=== PATIENT | female | born 1940 | race Caucasian/White ===

== ENCOUNTER 2020-11-02 12:40 | Outpatient (CLI) | payer MEDICARE, SELFPAY ==
[2020-11-02 15:44] LABS: Basophils # 0.1 10^3/uL (0.0-0.1); Basophils % 0.6 %; Eosinophils # 0.2 10^3/uL (0.0-0.8); Eosinophils % 2.2 %; Hematocrit 41.4 % (37.0-47.0); Hemoglobin 14.6 g/dL (11.5-15.3); Lymphocytes # 3.4 10^3/uL (0.8-4.8); Lymphocytes % 32.4 %; Mean Corpuscular HGB Conc 35.3 g/dL (30.0-36.0); Mean Corpuscular Volume 90.8 fL (81-99); Mean Platelet Volume 9.2 fL (7.4-10.4); Monocytes # 0.8 10^3/uL (0.2-0.9); Monocytes % 7.2 %; Neutrophils # 6.05 10^3/uL (1.8-7.7); Neutrophils % 57.2 %; Nucleated Red Blood Cells % 0 %; Platelet Count 226 10^3/cmm (130-400); Red Blood Count 4.56 10^6/uL (4.1-5.3); Red Cell Distribution Width 12.4 % (12.1-15.1); White Blood Count 10.6 10^3/uL (4.0-10.0)
[2020-11-02 16:06] LABS: Alanine Aminotransferase 20 U/L (0-33); Albumin Level 4.2 g/dL (3.5-5.2); Alkaline Phosphatase 72 IU/L (35-105); Anion Gap 15.4 (5-19); Aspartate Amino Transferase 17 U/L (0-32); Blood Urea Nitrogen 23 mg/dL (8-23); Calcium 9.6 mg/dL (8.5-10.5); Carbon Dioxide 28 mmol/L (22-29); Chloride 101 mmol/L (98-107); Globulin 2.9 g/dL (1.3-4.6); Glucose 96 mg/dL (65-115); Osmolality Calculated 296 mOsm/kg (285-295); Potassium 3.4 mmol/L (3.5-5.1); Sodium 141 mmol/L (136-145); Total Bilirubin 0.5 mg/dL (0.15-1.2); Total Protein 7.1 g/dL (6.6-8.7)
--- NOTE | 2020-11-04 08:49 | ONC CON_ITS ---
Dr. Li New Patient Note Patient: Nazanin Reynolds Unit #: [id number]: 1940 Dicatated By: De Li M.D.Date of Visit: Nov 02, 2020 Onc MED New Patient/Consult Referring Physician: Dr. Sumit Ceron M.D. History of Present Illness: Ms. Nazanin Reynolds, is a 80-year-old female with a history of macular degeneration, congestive heart failure, coronary artery disease during her routine follow-up her lab work-up done in early 2019 showed elevated platelets count and white blood cells, patient was referred to [facility] in [place], [place] where she underwent. 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 As per patient ,she was started on hydroxyurea, which she took twice a day for 6 weeks and after that in June 2020 she was started on dasatinib 50 mg p.o. daily, her baseline QTC was less than 450 ms, patient said she could not afford copayment so there was a delay in getting her medication, which she eventually got it and took it till October 04, 2020 when she ran out of her prescription and also moved to [place].. 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 Past Medical History: Ms. Reynolds's medical history consists of congestive heart failure, coronary artery disease, macular degeneration, and myocardial infarction. Past Surgical History: Ms. Reynolds's surgical/procedural history consists of cataract excision, cholecystectomy, and hysterectomy. Medications: Dede-[place] 1 Tablet (of 750 mg) Tablet, effervescent Oral PRN, amLODIPine Besylate 1 Tablet (of 2.5 mg) Oral daily, B Complex 1 Tablet Oral daily, Bisoprolol Fumarate 1 Tablet (of 5 mg) Oral every am, Brimonidine Tartrate 1 Drop(s) (of 0.2 %) Solution Ophthalmic b.i.d., Calcium 1 Tablet (of 500 mg) Oral b.i.d., Calcium 1 Tablet (of 500 mg) Oral daily, Co Q10 1 Capsule (of 100 mg) Oral daily, Copper 1 Tablet (of 5 mg) Oral daily, Fish Oil 1 Capsule (of 1400 mg) Oral t.i.d., Furosemide 1 Tablet (of 40 mg) Oral daily, Latanoprost 1 Drop(s) (of 0.005 %) Solution Ophthalmic at bedtime, Losartan Potassium 1 Tablet (of 25 mg) Oral daily, Omeprazole (20 mg) Capsule Delayed Release Oral Take as Directed, Pravastatin Sodium 1 Tablet (of 40 mg) Oral daily, PreserVision AREDS 1 Tablet Oral b.i.d., SM Stool Softener 1 Capsule (of 50 mg) Oral daily, Sprycel 1 Tablet (of 50 mg) Oral daily, Tagamet HB 2 - 3 Tablet (of 200 mg) Oral daily, Vitamin C 1 Capsule (of 250 mg) Oral daily, Vitamin D (Cholecalciferol) 1 Tablet (of 1000 mg) Oral daily, Vitamin E 1 Capsule (of 200 Units) Oral daily, Zeaxanthin 1 Tablet (of 1 mg) daily, Zinc 1 Tablet (of 40 mg) Oral daily Allergies: Codeine and Related, Iodinated Contrast Dye, and Morphine Derivatives. Social History: Ms. Reynolds is . Ms. Reynolds quit smoking 26 years ago but had smoked 2.5 packs/day for 38 years. She is a former drinker. Family History: Ms. Reynolds's mother at age 74: unknown cancer. Ms. Reynolds's father at age 88: congestive heart failure. Ms. Reynolds has 1 brother who is alive: 4 way bypass. She has 1 sister who is alive: 4 way bypass. Review Of Symptoms: Review of Systems is not available for this patient. Vital Signs: Most recent vitals are not available for this patient. Performance Status: 0 - Fully active, able to carry on all predisease activities without restrictions. (ECOG) Physical Examination: ENMT - No mouth sores, no thrush, no jaundice, Respiratory - Lungs are clear to auscultation, Cardiovascular - Regular rate and rhythm of heart, Abdomen - Soft, bowel sounds present, Extremities - Trace edema bilaterally. Lab/Imaging: Most recent lab results are not available for this patient. 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 daily in June 2020, baseline QTC less than 450 ms. Labs done on May 23, 2020 showed white blood count 14.3, hemoglobin 14.6 hematocrit 43.7 platelets 1265,000, neutrophils 69%, lymphocytes 14%, basophil 12% follow-up labs done on August 04, 2020???including PCR for BCR ABL showed 3%, which is optimal response for 3 months on dasatinib [address] scan of abdomen pelvis done in March 2020 showed 7 mm pulmonary nodule versus scar in the left lung base and no acute abnormality in the upper abdomen History of coronary artery disease/CHF Macular degenerative disease Plan: Discussed with patient regarding her disease status and treatment options so far, patient has tolerated dasatinib 50 mg p.o. daily well and her follow-up lab work-up done in August 2020 showed excellent response e.g. quantitative BCR/ABL checked in August 2020 was 3% compared to 53.36% at the time of diagnosis on May 23, 2020. As per patient she ran out of her prescription and the last time she took her dasatinib was on October 04, 2020 as she moved to [place] from [place]. So we will give her prescription for dasatinib 50 mg p.o. daily and she will return to clinic in 1 month after restarting dasatinib with CBC CMP, LDH and we will also continue 3 monthly PCR quantitative BCR/ABL to assess the response. We will also consider follow-up CT scan of chest as her CT scan of chest done in March 2020 showed small pulmonary nodule versus scar of posterior left lung base measuring 7 mm and a tiny 2 to 3 mm subpleural pulmonary nodule at the right lung apex. Signed By: De Li M.D. <<Signature on File>>
== END 2020-11-02 12:41 | disposition home or self-care (01) ==
PROVIDERS: PCP Family Medicine; Visit Provider Internal Medicine Hematology & Oncology
DX: C92.10 Chronic myeloid leukemia, BCR/ABL-positive, not having achieved remission (principal); I25.10 Atherosclerotic heart disease of native coronary artery without angina pectoris; I50.9 Heart failure, unspecified; H35.30 Unspecified macular degeneration; Z79.899 Other long term (current) drug therapy; Z87.891 Personal history of nicotine dependence
CPT/HCPCS: 36415; 80053; 85025; 99203

== ENCOUNTER 2021-02-06 12:11 | Outpatient (CLI) | payer MEDICARE, SELFPAY ==
[2021-02-06 12:44] LABS: Basophils # 0.1 10^3/uL (0.0-0.1); Basophils % 0.8 %; Eosinophils # 0.3 10^3/uL (0.0-0.8); Eosinophils % 2.6 %; Hematocrit 44.5 % (37.0-47.0); Lymphocytes # 3.1 10^3/uL (0.8-4.8); Lymphocytes % 31.2 %; Mean Corpuscular HGB Conc 33.7 g/dL (30.0-36.0); Mean Corpuscular Hemoglobin 31.6 pg (28.0-34.0); Mean Corpuscular Volume 93.7 fL (81-99); Mean Platelet Volume 9.3 fL (7.4-10.4); Monocytes # 0.8 10^3/uL (0.2-0.9); Monocytes % 7.8 %; Neutrophils # 5.62 10^3/uL (1.8-7.7); Neutrophils % 57.3 %; Nucleated Red Blood Cells % 0 %; Platelet Count 276 10^3/cmm (130-400); Red Blood Count 4.75 10^6/uL (4.1-5.3); Red Cell Distribution Width 12.6 % (12.1-15.1); White Blood Count 9.8 10^3/uL (4.0-10.0)
[2021-02-06 13:01] LABS: Alanine Aminotransferase 21 U/L (0-33); Albumin Level 4.3 g/dL (3.5-5.2); Alkaline Phosphatase 81 IU/L (35-105); Anion Gap 12.8 (5-19); Aspartate Amino Transferase 19 U/L (0-32); Blood Urea Nitrogen 21 mg/dL (8-23); Carbon Dioxide 30 mmol/L (22-29); Chloride 101 mmol/L (98-107); Globulin 2.9 g/dL (1.3-4.6); Glucose 96 mg/dL (65-115); Osmolality Calculated 293 mOsm/kg (285-295); Potassium 3.8 mmol/L (3.5-5.1); Sodium 140 mmol/L (136-145); Total Bilirubin 0.3 mg/dL (0.15-1.2); Total Protein 7.2 g/dL (6.6-8.7)
[2021-02-08 13:19] LABS: Lactate Dehydrogenase 194 U/L (135-214)
== END 2021-02-06 12:12 | disposition home or self-care (01) ==
LOC: ONCMED 12:18
PROVIDERS: PCP Family Medicine; Visit Provider Internal Medicine Hematology & Oncology
DX: C92.10 Chronic myeloid leukemia, BCR/ABL-positive, not having achieved remission (principal)
CPT/HCPCS: 80053; 83615; 85025

== ENCOUNTER 2021-02-09 05:45 | Outpatient (CLI) | payer MEDICARE, SELFPAY ==
--- NOTE | 2021-02-09 10:13 | ONC FU_ITS ---
Dr. Li follow up note Patient: Nazanin Reynolds Unit #: [id number]: 1940 Dicatated By: De Li M.D.Date of Visit:Feb 09, 2021 Onc Med Follow-up/Prog Note History of Present Illness: Ms. Nazanin Reynolds, is a 80-year-old female with a history of macular degeneration, congestive heart failure, coronary artery disease during her routine follow-up her lab work-up done in early 2019 showed elevated platelets count and white blood cells, patient was referred to [facility] in [place], [place] where she underwent. 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 As per patient ,she was started on hydroxyurea, which she took twice a day for 6 weeks and after that in June 2020 she was started on dasatinib 50 mg p.o. daily, her baseline QTC was less than 450 ms, patient said she could not afford copayment so there was a delay in getting her medication, which she eventually got it and took it till October 04, 2020 when she ran out of her prescription and also moved to [place].. 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 As per oncology note from August 11, 2020, patient was tolerating treatment well with evidence of CHR. Patient denies any specific complaints today, no fever chills, no nausea or vomiting, no diarrhea or constipation, no abdominal fullness, appetite is good History of smoking but quit smoking in 1993.History of coronary artery disease status post DC in 1993 requiring intubation which caused permanent huskiness of voice History of macular degeneration and glaucoma Came for follow-up, patient denies any specific complaints, no fever chills, no nausea or vomiting, no diarrhea or constipation, no abdominal fullness, no weight loss. Patient says she did receive her monthly supply of dasatinib in January 2021 and she ran out of her monthly supply last week and did not get another monthly supply. Patient was given dasatinib prescription in the first week of November 2020, as per patient she has no idea why it took so long but pharmacist was apologizing to her for the delay. Medications: Dede-[place] 1 Tablet (of 750 mg) Tablet, effervescent Oral PRN, amLODIPine Besylate 1 Tablet (of 2.5 mg) Oral daily, B Complex 1 Tablet Oral daily, Bisoprolol Fumarate 1 Tablet (of 5 mg) Oral every am, Brimonidine Tartrate 1 Drop(s) (of 0.2 %) Solution Ophthalmic b.i.d., Calcium 1 Tablet (of 500 mg) Oral b.i.d., Calcium 1 Tablet (of 500 mg) Oral daily, Co Q10 1 Capsule (of 100 mg) Oral daily, Copper 1 Tablet (of 5 mg) Oral daily, Fish Oil 1 Capsule (of 1400 mg) Oral t.i.d., Furosemide 1 Tablet (of 40 mg) Oral daily, Latanoprost 1 Drop(s) (of 0.005 %) Solution Ophthalmic at bedtime, Losartan Potassium 1 Tablet (of 25 mg) Oral daily, Omeprazole (20 mg) Capsule Delayed Release Oral Take as Directed, Pravastatin Sodium 1 Tablet (of 40 mg) Oral daily, PreserVision AREDS 1 Tablet Oral b.i.d., SM Stool Softener 1 Capsule (of 50 mg) Oral daily, Sprycel 1 Tablet (of 50 mg) Oral daily, Tagamet HB 2 - 3 Tablet (of 200 mg) Oral daily, Vitamin C 1 Capsule (of 250 mg) Oral daily, Vitamin D (Cholecalciferol) 1 Tablet (of 1000 mg) Oral daily, Vitamin E 1 Capsule (of 200 Units) Oral daily, Zeaxanthin 1 Tablet (of 1 mg) daily, Zinc 1 Tablet (of 40 mg) Oral daily Allergies: Codeine and Related, Iodinated Contrast Dye, and Morphine Derivatives. Review of Systems: Review of Systems is not available for this patient. Vital Signs: Performed on Feb 09, 2021 09:19 Weight - 165.4 lbs (HIGH) BSA - 0.00 sq.m BMI - 0.00 Temperature - 95.6 F (LOW) Pulse - 86 /min Respiration - 18 /min BP - 130/78 mm(hg) O2 Sat - 99 % Pain - 0 Fatigue - 0 Performance Status: 1 - No physically strenuous activity, but ambulatory and able to carry out light or sedentary work (e.g. office work, light house work). (ECOG) Physical Examination: ENMT - No mouth sores, no thrush, no jaundice no lymphadenopathy, Respiratory - Lungs are clear to auscultation, Cardiovascular - Regular rate and rhythm of heart, Abdomen - Soft, bowel sounds present, Extremities - No visible edema. Lab/Imaging: Test performed on Nov 02, 2020 15:32 Sodium 141 mmol/L Potassium 3.4 mmol/L Chloride 101 mmol/L CO2 28 mmol/L Anion Gap 15.4 BUN 23 mg/dL Creatinine 0.8 mg/dL Glucose 96 mg/dL Osmolality - Calculated 296 mOsm/kg Calcium 9.6 mg/dL Protein, Total 7.1 g/dL Albumin 4.2 g/dL Globulin 2.9 g/dL Bilirubin, Total 0.5 mg/dL ALT (SGPT) 20 U/L AST (SGOT) 17 U/L Alkaline Phosphatase 72 IU/L WBC 10.6 10 3/uL RBC 4.56 10 6/uL HGB 14.6 g/dL HCT 41.4 % MCV 90.8 fL MCH 32.0 pg MCHC 35.3 g/dL RDW 12.4 % Platelet Count 226 10 3/cmm MPV 9.2 fL Neutrophils 6.05 10 3/uL Lymphocytes 3.4 10 3/uL Monocytes 0.8 10 3/uL Eosinophils 0.2 10 3/uL Basophils 0.1 10 3/uL Neutrophil % 57.2 % Lymphocyte % 32.4 % Monocyte % 7.2 % Eosinophil % 2.2 % Basophils % 0.6 % NRBC % 0 % Impression: CML, 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 daily in June 2020, baseline QTC less than 450 ms. Labs done on May 23, 2020 showed white blood count 14.3, hemoglobin 14.6 hematocrit 43.7 platelets 1265,000, neutrophils 69%, lymphocytes 14%, basophil 12% follow-up labs done on August 04, 2020???including PCR for BCR ABL showed 3%, which is optimal response for 3 months on dasatinib 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 required for acute DC History of coronary artery disease/CHF Macular degenerative disease, Bilateral glaucoma Plan: Discussed with patient regarding her labs white blood count 9.8 hemoglobin 15 hematocrit 44.5 platelets 276,000 ANC 5620 CMP within normal limits except creatinine 1 Clinically, patient doing well with no new signs symptoms suggestive of disease progression but patient is noncompliant with her dasatinib because of problem with pharmacy as initially it took long time to get her monthly supply of dasatinib and then he was sent for just 1 month and patient never got second monthly supply. We will request patient navigator Ms. Hwang to discuss with patient regarding this issue and ensure dasatinib supply on regular basis. Patient has history of subcentimeter pulmonary nodule in left lung base which was seen on CT scan done in March 2020, we will repeat her CT scan of the chest with special attention to left lung, patient has longstanding history of smoking but quit smoking in 1993. Patient will return to clinic 1 month after starting of dasatinib with CBC CMP and CT scan of the chest and quantitative PCR for BCR ABL. Signed By: De Li M.D. <<Signature on File>>
== END 2021-02-09 05:46 | disposition home or self-care (01) ==
PROVIDERS: PCP Family Medicine; Visit Provider Internal Medicine Hematology & Oncology
DX: C92.10 Chronic myeloid leukemia, BCR/ABL-positive, not having achieved remission (principal); R91.1 Solitary pulmonary nodule; I25.10 Atherosclerotic heart disease of native coronary artery without angina pectoris; I50.9 Heart failure, unspecified; Z91.14 Patient's other noncompliance with medication regimen; Z87.891 Personal history of nicotine dependence
CPT/HCPCS: 99214

== ENCOUNTER 2021-02-21 06:07 | Outpatient (CLI) | payer MEDICARE, SELFPAY ==
--- NOTE | 2021-02-21 09:21 | CT_ITS ---
WS: [id number] CT CHEST WITH INTRAVENOUS CONTRAST HISTORY: LUNG CANCER/ ATTN:LEFT LUNG BASE NODULE TECHNIQUE: Contiguous 5 mm axial imaging performed on the thorax. Coronal and sagittal reformats are submitted. All CT scans at [facility] use at least one of these dose optimization techniq ues: automated exposure control; mA and/or kV adjustment per patient size (includes targeted exams wh ere dose is matched to clinical indication); or iterative reconstruction. CONTRAST: Visipaque 320; 95 mL IV. DLP: 746.98 mGy.cm COMPARISON: None available. Lungs and central airway: Lobulated noncalcified pulmonary nodule in the periphery of the LEFT lower lobe. Several nodular components with pleural tethering. This nodule extends over length of 13 mm x 9 x 13 mm. Mild groundglass attenuation at the lingula. No additional nodules or pneumonia. Pleura: Normal. No pleural effusion. Heart and pericardium: Moderate cardiomegaly. No pericardial effusion. Mediastinum and alexy: No mediastinum or hilar adenopathy. Vessels: Moderate atherosclerosis aorta. Mild dilatation of the pulmonary artery and extensive blanco ry artery calcifications. Moderate stenosis at the origin of the LEFT common carotid artery. Chest wall and lower neck: No soft tissue masses. Upper abdomen: Moderate-sized hiatal hernia. Prior cholecystectomy. Mild hepatic steatosis. Osseous structures: Mild thoracic spondylitic changes. No osteoblastic or osteolytic disease. CT/CT chest w con* [id number] IMPRESSION: 1. LEFT lower lobe pulmonary nodule measures 13 x 9 x 13 mm. No prior studies are available to evaluate for progression or improvement. 2. Chronic emphysema. 3. Moderate atherosclerosis aorta and proximal great vessels. 4. No adenopathy. 5. Prior cholecystectomy.
[2021-02-21] MEDS: iodixanol 320 mg/mL 100mL Btl IV (09:50)
[2021-02-25 00:43] LABS: BCR ABL1 (IS) 7.846 (0.000); P210 BCR ALB1 DETECTED; Prior Results NG
== END 2021-02-21 06:08 | disposition home or self-care (01) ==
LOC: ONCMED 06:09
PROVIDERS: PCP Family Medicine; Visit Provider Internal Medicine Hematology & Oncology
DX: C92.10 Chronic myeloid leukemia, BCR/ABL-positive, not having achieved remission (principal); R91.1 Solitary pulmonary nodule; J43.9 Emphysema, unspecified; I70.0 Atherosclerosis of aorta
CPT/HCPCS: 36415; 71260; 81206; Q9967

== ENCOUNTER 2021-02-22 12:12 | Outpatient (RCR) | payer MEDICARE, SELFPAY | END 2021-03-01 23:59 | disposition home or self-care (01) | LOC: ONCMED 12:12 | PROVIDERS: PCP Family Medicine; Visit Provider Internal Medicine Hematology & Oncology | DX: C92.10 Chronic myeloid leukemia, BCR/ABL-positive, not having achieved remission (principal) | CPT/HCPCS: 96374; J2930 ==

== ENCOUNTER 2021-03-16 05:56 | Outpatient (RCR) | payer MEDICARE, SELFPAY ==
[2021-03-16 14:47] LABS: Basophils # 0.1 10^3/uL (0.0-0.1); Basophils % 0.7 %; Eosinophils # 0.2 10^3/uL (0.0-0.8); Eosinophils % 2.4 %; Hematocrit 40.4 % (37.0-47.0); Hemoglobin 13.7 g/dL (11.5-15.3); Lymphocytes # 3.3 10^3/uL (0.8-4.8); Lymphocytes % 38.5 %; Mean Corpuscular HGB Conc 33.9 g/dL (30.0-36.0); Mean Corpuscular Hemoglobin 31.7 pg (28.0-34.0); Mean Corpuscular Volume 93.5 fL (81-99); Mean Platelet Volume 9.5 fL (7.4-10.4); Monocytes # 0.8 10^3/uL (0.2-0.9); Monocytes % 9.1 %; Neutrophils # 4.25 10^3/uL (1.8-7.7); Neutrophils % 49.1 %; Nucleated Red Blood Cells % 0 %; Platelet Count 255 10^3/cmm (130-400); Red Blood Count 4.32 10^6/uL (4.1-5.3); White Blood Count 8.7 10^3/uL (4.0-10.0)
[2021-03-16 15:02] LABS: Alanine Aminotransferase 22 U/L (0-33); Albumin Level 4.1 g/dL (3.5-5.2); Alkaline Phosphatase 72 IU/L (35-105); Anion Gap 12.7 (5-19); Aspartate Amino Transferase 19 U/L (0-32); Blood Urea Nitrogen 28 mg/dL (8-23); Calcium 8.8 mg/dL (8.5-10.5); Carbon Dioxide 28 mmol/L (22-29); Chloride 102 mmol/L (98-107); Globulin 2.6 g/dL (1.3-4.6); Glucose 93 mg/dL (65-115); Osmolality Calculated 293 mOsm/kg (285-295); Potassium 3.7 mmol/L (3.5-5.1); Sodium 139 mmol/L (136-145); Total Bilirubin 0.3 mg/dL (0.15-1.2); Total Protein 6.7 g/dL (6.6-8.7)
--- NOTE | 2021-03-16 15:50 | ONC FU_ITS ---
Dr. Li follow up note Patient: Nazanin Reynolds Unit #: [id number]: 1940 Dicatated By: De Li M.D.Date of Visit:Mar 16, 2021 Onc Med Follow-up/Prog Note History of Present Illness: Ms. Nazanin Reynolds, is a 80-year-old female with a history of macular degeneration, congestive heart failure, coronary artery disease during her routine follow-up her lab work-up done in early 2019 showed elevated platelets count and white blood cells, patient was referred to [facility] [place] [facility] in [place], [place] where she underwent. 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 Repeat CT scan of chest done on February 21, 2021 shows left lower lobe pulmonary nodule measuring 1.3 x 0.9 x 1.3 cm compared to 7 mm in March 2020 As per patient ,she was started on hydroxyurea, which she took twice a day for 6 weeks and after that in June 2020 she was started on dasatinib 50 mg p.o. daily, her baseline QTC was less than 450 ms, patient said she could not afford copayment so there was a delay in getting her medication, which she eventually got it and took it till October 04, 2020 when she ran out of her prescription and also moved to [place].. 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 As per oncology note from August 11, 2020, patient was tolerating treatment well with evidence of CHR. Repeat BCR/ABL 1 international scale was 7.84 compared to 3 on August 04, 2020.(Patient was noncompliant with dasatinib due to unavailability while moving to [place] from [place] and her medicine was not delivered to her by pharmacy on time) Patient denies any specific complaints today, no fever chills, no nausea or vomiting, no diarrhea or constipation, no abdominal fullness, appetite is good History of smoking but quit smoking in 1993.History of coronary artery disease status post CT in 1993 requiring intubation which caused permanent huskiness of voice History of macular degeneration and glaucoma Came for follow-up, denies any specific complaints, no fever chills, no nausea vomiting, no diarrhea constipation, no hemoptysis hematemesis, no abdominal fullness, no weight loss. As per patient she is taking dasatinib on a regular basis now, still getting monthly supply, patient was advised to call pharmacy week before her next monthly supply is due Medications: [place]ede-[place] 1 Tablet (of 750 mg) Tablet, effervescent Oral PRN, amLODIPine Besylate 1 Tablet (of 2.5 mg) Oral daily, B Complex 1 Tablet Oral daily, Bisoprolol Fumarate 1 Tablet (of 5 mg) Oral every am, Brimonidine Tartrate 1 Drop(s) (of 0.2 %) Solution Ophthalmic b.i.d., Calcium 1 Tablet (of 500 mg) Oral b.i.d., Calcium 1 Tablet (of 500 mg) Oral daily, Co Q10 1 Capsule (of 100 mg) Oral daily, Copper 1 Tablet (of 5 mg) Oral daily, Fish Oil 1 Capsule (of 1400 mg) Oral t.i.d., Furosemide 1 Tablet (of 40 mg) Oral daily, Latanoprost 1 Drop(s) (of 0.005 %) Solution Ophthalmic at bedtime, Losartan Potassium 1 Tablet (of 25 mg) Oral daily, Omeprazole (20 mg) Capsule Delayed Release Oral Take as Directed, Pravastatin Sodium 1 Tablet (of 40 mg) Oral daily, PreserVision AREDS 1 Tablet Oral b.i.d., SM Stool Softener 1 Capsule (of 50 mg) Oral daily, Sprycel 1 Tablet (of 50 mg) Oral daily, Tagamet HB 2 - 3 Tablet (of 200 mg) Oral daily, Vitamin C 1 Capsule (of 250 mg) Oral daily, Vitamin D (Cholecalciferol) 1 Tablet (of 1000 mg) Oral daily, Vitamin E 1 Capsule (of 200 Units) Oral daily, Zeaxanthin 1 Tablet (of 1 mg) daily, Zinc 1 Tablet (of 40 mg) Oral daily Allergies: Codeine and Related, Iodinated Contrast Dye, and Morphine Derivatives. Review of Systems: Review of Systems is not available for this patient. Vital Signs: Performed on Mar 16, 2021 15:18 Weight - 167.8 lbs (HIGH) BSA - 0.00 sq.m BMI - 0.00 Temperature - 97.0 F (LOW) Pulse - 70 /min Respiration - 18 /min BP - 127/53 mm(hg) O2 Sat - 96 % Pain - 0 Performance Status: 1 - No physically strenuous activity, but ambulatory and able to carry out light or sedentary work (e.g. office work, light house work). (ECOG) Physical Examination: ENMT - No mouth sores, no thrush, no jaundice, Respiratory - Lungs are clear to auscultation, Cardiovascular - Regular rate and rhythm of heart, Abdomen - Soft, bowel sounds present, Extremities - No visible edema. Lab/Imaging: Test performed on Nov 02, 2020 15:32 Sodium 141 mmol/L Potassium 3.4 mmol/L Chloride 101 mmol/L CO2 28 mmol/L Anion Gap 15.4 BUN 23 mg/dL Creatinine 0.8 mg/dL Glucose 96 mg/dL Osmolality - Calculated 296 mOsm/kg Calcium 9.6 mg/dL Protein, Total 7.1 g/dL Albumin 4.2 g/dL Globulin 2.9 g/dL Bilirubin, Total 0.5 mg/dL ALT (SGPT) 20 U/L AST (SGOT) 17 U/L Alkaline Phosphatase 72 IU/L WBC 10.6 10 3/uL RBC 4.56 10 6/uL HGB 14.6 g/dL HCT 41.4 % MCV 90.8 fL MCH 32.0 pg MCHC 35.3 g/dL RDW 12.4 % Platelet Count 226 10 3/cmm MPV 9.2 fL Neutrophils 6.05 10 3/uL Lymphocytes 3.4 10 3/uL Monocytes 0.8 10 3/uL Eosinophils 0.2 10 3/uL Basophils 0.1 10 3/uL Neutrophil % 57.2 % Lymphocyte % 32.4 % Monocyte % 7.2 % Eosinophil % 2.2 % Basophils % 0.6 % NRBC % 0 % Impression: CML, 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 daily in June 2020, baseline QTC less than 450 ms. Labs done on May 23, 2020 showed white blood count 14.3, hemoglobin 14.6 hematocrit 43.7 platelets 1265,000, neutrophils 69%, lymphocytes 14%, basophil 12% follow-up labs done on August 04, 2020???including PCR for BCR ABL showed 3%, which is optimal response for 3 months on dasatinib [address] scan of abdomen pelvis done in March 2020 showed 7 mm pulmonary nodule versus scar in the left lung base and no acute abnormality in the upper abdomen Repeat CT scan of chest done on February 21, 2021 showed left lower lobe pulmonary nodule mild 13 x 9 x 13 mm. Chronic emphysema. No lymphadenopathy. 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 required for acute CT History of coronary artery disease/CHF Macular degenerative disease, Bilateral glaucoma Plan: Discussed with patient regarding her labs white blood count 8.7 hemoglobin 13.7 hematocrit 40.4 platelets 255,000 CMP within normal limits, BCR ABL 1 (IS) checked on February 21, 2021 was 7.84 compared to 3 in August 2020 Clinically, patient doing well with no signs symptom suggestive of recurrence/progression of her disease but her follow-up labs shows although CBC is within normal range but BCR/ABL 1 showed probably disease progression most likely due to noncompliant as patient missed her dasatinib for many weeks while moving from [place] to [place] and then having issues with her local pharmacy regarding her decitabine delivery but for the last few weeks she has been taking no regular basis and now receiving her monthly dose of dasatinib regularly. 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 But her repeat CT scan of chest done recently on February 21, 2021 showed left lower lobe mass has doubled in size now 13 x 9 x 13 mm compared to 7 mm last year. Thus we will refer her to pulmonology for evaluation Signed By: De Li M.D. <<Signature on File>>
== END 2021-03-31 23:59 | disposition home or self-care (01) ==
LOC: ONCMED 05:56
PROVIDERS: PCP Family Medicine; Visit Provider Internal Medicine Hematology & Oncology
DX: C92.10 Chronic myeloid leukemia, BCR/ABL-positive, not having achieved remission (principal); I25.2 Old myocardial infarction; I25.10 Atherosclerotic heart disease of native coronary artery without angina pectoris; I50.9 Heart failure, unspecified; H35.50 Unspecified hereditary retinal dystrophy; H40.89 Other specified glaucoma; Z79.899 Other long term (current) drug therapy
CPT/HCPCS: 36415; 80053; 85025; 99215

== ENCOUNTER 2021-04-27 05:34 | Outpatient (RCR) | payer MEDICARE, SELFPAY ==
[2021-04-22 21:08] LABS: BCR ABL1 (IS) 0.009 (0.000); P210 BCR ALB1 DETECTED; Prior Results NG
[2021-04-27 13:31] LABS: Basophils # 0.1 10^3/uL (0.0-0.1); Basophils % 0.6 %; Eosinophils # 0.2 10^3/uL (0.0-0.8); Eosinophils % 2.4 %; Hematocrit 40.8 % (37.0-47.0); Hemoglobin 14.1 g/dL (11.5-15.3); Lymphocytes # 3.1 10^3/uL (0.8-4.8); Lymphocytes % 32.5 %; Mean Corpuscular HGB Conc 34.6 g/dL (30.0-36.0); Mean Corpuscular Hemoglobin 32.9 pg (28.0-34.0); Mean Corpuscular Volume 95.3 fL (81-99); Mean Platelet Volume 9.2 fL (7.4-10.4); Monocytes # 0.8 10^3/uL (0.2-0.9); Monocytes % 8.3 %; Neutrophils # 5.33 10^3/uL (1.8-7.7); Nucleated Red Blood Cells % 0 %; Platelet Count 221 10^3/cmm (130-400); Red Blood Count 4.28 10^6/uL (4.1-5.3); Red Cell Distribution Width 13.2 % (12.1-15.1); White Blood Count 9.5 10^3/uL (4.0-10.0)
--- NOTE | 2021-04-27 16:22 | ONC FU_ITS ---
Dr. Li follow up note Patient: Nazanin Reynolds Unit #: [id number]: 1940 Dicatated By: De iL M.D.Date of Visit:April 27, 2021 Onc Med Follow-up/Prog Note History of Present Illness: Ms. Nazanin Reynolds, is a 80-year-old female with a history of macular degeneration, congestive heart failure, coronary artery disease during her routine follow-up her lab work-up done in early 2019 showed elevated platelets count and white blood cells, patient was referred to [facility] in [place], [place] where she underwent. 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 Repeat CT scan of chest done on February 21, 2021 shows left lower lobe pulmonary nodule measuring 1.3 x 0.9 x 1.3 cm compared to 7 mm in March 2020 As per patient ,she was started on hydroxyurea, which she took twice a day for 6 weeks and after that in June 2020 she was started on dasatinib 50 mg p.o. daily, her baseline QTC was less than 450 ms, patient said she could not afford copayment so there was a delay in getting her medication, which she eventually got it and took it till October 04, 2020 when she ran out of her prescription and also moved to [place].. 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 As per oncology note from August 11, 2020, patient was tolerating treatment well with evidence of CHR. Repeat BCR/ABL 1 international scale was 7.84 compared to 3 on August 04, 2020.(Patient was noncompliant with dasatinib due to unavailability while moving to [place] from [place] and her medicine was not delivered to her by pharmacy on time) Repeat quantitative PCR for BCR ABL done on April 19, 2021 shows 0.009 compared to 7.84 in January 2021, probably due to patient's inability to acquire dasatinib while she was moving to [place] Patient denies any specific complaints today, no fever chills, no nausea or vomiting, no diarrhea or constipation, no abdominal fullness, appetite is good History of smoking but quit smoking in 1993.History of coronary artery disease status post [place] in 1993 requiring intubation which caused permanent huskiness of voice History of macular degeneration and glaucoma Came for follow-up, denies any specific complaints, no fever chills, no nausea or vomiting, no diarrhea or constipation, no abdominal pain or fullness, no headaches, no chest pain or palpitation, tolerating dasatinib p.o. daily well Medications: Dede-[place] 1 Tablet (of 750 mg) Tablet, effervescent Oral PRN, amLODIPine Besylate 1 Tablet (of 2.5 mg) Oral daily, B Complex 1 Tablet Oral daily, Bisoprolol Fumarate 1 Tablet (of 5 mg) Oral every am, Brimonidine Tartrate 1 Drop(s) (of 0.2 %) Solution Ophthalmic b.i.d., Calcium 1 Tablet (of 500 mg) Oral b.i.d., Calcium 1 Tablet (of 500 mg) Oral daily, Co Q10 1 Capsule (of 100 mg) Oral daily, Copper 1 Tablet (of 5 mg) Oral daily, Fish Oil 1 Capsule (of 1400 mg) Oral t.i.d., Furosemide 1 Tablet (of 40 mg) Oral daily, Latanoprost 1 Drop(s) (of 0.005 %) Solution Ophthalmic at bedtime, Losartan Potassium 1 Tablet (of 25 mg) Oral daily, Omeprazole (20 mg) Capsule Delayed Release Oral Take as Directed, Pravastatin Sodium 1 Tablet (of 40 mg) Oral daily, PreserVision AREDS 1 Tablet Oral b.i.d., SM Stool Softener 1 Capsule (of 50 mg) Oral daily, Sprycel 1 Tablet (of 50 mg) Oral daily, Tagamet HB 2 - 3 Tablet (of 200 mg) Oral daily, Vitamin C 1 Capsule (of 250 mg) Oral daily, Vitamin D (Cholecalciferol) 1 Tablet (of 1000 mg) Oral daily, Vitamin E 1 Capsule (of 200 Units) Oral daily, Zeaxanthin 1 Tablet (of 1 mg) daily, Zinc 1 Tablet (of 40 mg) Oral daily Allergies: Codeine and Related, Iodinated Contrast Dye, and Morphine Derivatives. Review of Systems: Review of Systems is not available for this patient. Vital Signs: Performed on April 27, 2021 13:25 Temperature - 97.6 F (LOW) Pulse - 67 /min Respiration - 18 /min BP - 139/66 mm(hg) O2 Sat - 99 % Pain - 0 Performance Status: 1 - No physically strenuous activity, but ambulatory and able to carry out light or sedentary work (e.g. office work, light house work). (ECOG) Physical Examination: ENMT - No mouth sores, no thrush, no jaundice, Respiratory - Lungs are clear to auscultation, Cardiovascular - Regular rate and rhythm of heart, Abdomen - Soft, bowel sounds present, Extremities - No visible edema. Lab/Imaging: Test performed on Nov 02, 2020 15:32 Sodium 141 mmol/L Potassium 3.4 mmol/L Chloride 101 mmol/L CO2 28 mmol/L Anion Gap 15.4 BUN 23 mg/dL Creatinine 0.8 mg/dL Glucose 96 mg/dL Osmolality - Calculated 296 mOsm/kg Calcium 9.6 mg/dL Protein, Total 7.1 g/dL Albumin 4.2 g/dL Globulin 2.9 g/dL Bilirubin, Total 0.5 mg/dL ALT (SGPT) 20 U/L AST (SGOT) 17 U/L Alkaline Phosphatase 72 IU/L WBC 10.6 10 3/uL RBC 4.56 10 6/uL HGB 14.6 g/dL HCT 41.4 % MCV 90.8 fL MCH 32.0 pg MCHC 35.3 g/dL RDW 12.4 % Platelet Count 226 10 3/cmm MPV 9.2 fL Neutrophils 6.05 10 3/uL Lymphocytes 3.4 10 3/uL Monocytes 0.8 10 3/uL Eosinophils 0.2 10 3/uL Basophils 0.1 10 3/uL Neutrophil % 57.2 % Lymphocyte % 32.4 % Monocyte % 7.2 % Eosinophil % 2.2 % Basophils % 0.6 % NRBC % 0 % Impression: CML, 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 daily in June 2020, baseline QTC less than 450 ms. Labs done on May 23, 2020 showed white blood count 14.3, hemoglobin 14.6 hematocrit 43.7 platelets 1265,000, neutrophils 69%, lymphocytes 14%, basophil 12% follow-up labs done on August 04, 2020???including PCR for BCR ABL showed 3%, which is optimal response for 3 months on dasatinib [address] scan of abdomen pelvis done in March 2020 showed 7 mm pulmonary nodule versus scar in the left lung base and no acute abnormality in the upper abdomen Repeat CT scan of chest done on February 21, 2021 showed left lower lobe pulmonary nodule mild 13 x 9 x 13 mm. Chronic emphysema. No lymphadenopathy. 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 daily well, her follow-up labs showed excellent response, will continue same e.g. dasatinib 50 mg p.o. daily and then she will return to clinic in 3 months with CBC CMP and quantitative PCR for BCR ABL. Signed By: De Li M.D. <<Signature on File>>
== END 2021-05-01 23:59 | disposition home or self-care (01) ==
LOC: ONCMED 05:34
PROVIDERS: PCP Family Medicine; Visit Provider Internal Medicine Hematology & Oncology
DX: C92.10 Chronic myeloid leukemia, BCR/ABL-positive, not having achieved remission (principal); I25.2 Old myocardial infarction; I25.10 Atherosclerotic heart disease of native coronary artery without angina pectoris; I50.9 Heart failure, unspecified; H35.50 Unspecified hereditary retinal dystrophy; H40.9 Unspecified glaucoma; Z79.899 Other long term (current) drug therapy; Z92.21 Personal history of antineoplastic chemotherapy
CPT/HCPCS: 36415; 81206; 85025; 99214

== ENCOUNTER 2021-07-24 10:12 | Outpatient (CLI) | payer MEDICARE, SELFPAY ==
[2021-07-24 11:00] LABS: Basophils # 0.1 10^3/uL (0.0-0.1); Basophils % 0.7 %; Eosinophils # 0.2 10^3/uL (0.0-0.8); Eosinophils % 2.2 %; Hematocrit 41.1 % (37.0-47.0); Hemoglobin 13.9 g/dL (11.5-15.3); Lymphocytes # 2.9 10^3/uL (0.8-4.8); Lymphocytes % 26.9 %; Mean Corpuscular HGB Conc 33.8 g/dL (30.0-36.0); Mean Corpuscular Volume 94.7 fl (81-99); Mean Platelet Volume 9.3 fL (7.4-10.4); Monocytes % 9.4 %; Neutrophils # 6.42 10^3/uL (1.8-7.7); Neutrophils % 59.8 %; Nucleated Red Blood Cells % 0 %; Platelet Count 228 10^3/cmm (130-400); Red Blood Count 4.34 10^6/uL (4.1-5.3); Red Cell Distribution Width 12.6 % (12.1-15.1); White Blood Count 10.8 10^3/uL (4.0-10.0)
[2021-07-24 11:34] LABS: Alanine Aminotransferase 18 U/L (0-33); Albumin Level 3.9 g/dL (3.5-5.2); Alkaline Phosphatase 65 IU/L (35-105); Anion Gap 13.8 (5-19); Aspartate Amino Transferase 20 U/L (0-32); Blood Urea Nitrogen 22 mg/dL (8-23); Calcium 8.8 mg/dL (8.5-10.5); Carbon Dioxide 26 mmol/L (22-29); Chloride 105 mmol/L (98-107); Globulin 2.6 g/dL (1.3-4.6); Glucose 106 mg/dL (65-115); Osmolality Calculated 296 mOsm/kg (285-295); Potassium 3.8 mmol/L (3.5-5.1); Sodium 141 mmol/L (136-145); Total Bilirubin 0.3 mg/dL (0.15-1.2); Total Protein 6.5 g/dL (6.6-8.7)
[2021-07-26 22:12] LABS: BCR ABL1 (IS) 0.004 (0.000); P210 BCR ALB1 DETECTED; Prior Results NG; Source whole blood
== END 2021-07-24 10:13 | disposition home or self-care (01) ==
LOC: ONCMED 10:18
PROVIDERS: PCP Family Medicine; Visit Provider Internal Medicine Hematology & Oncology
DX: C92.10 Chronic myeloid leukemia, BCR/ABL-positive, not having achieved remission (principal); Z79.899 Other long term (current) drug therapy
CPT/HCPCS: 36415; 80053; 81206; 85025

== ENCOUNTER 2021-08-02 05:30 | Outpatient (CLI) | payer MEDICARE, SELFPAY ==
--- NOTE | 2021-08-03 15:49 | ONC FU_ITS ---
Dr. Li follow up note Patient: Nazanin Reynolds Unit #: [id number]: 1940 Dicatated By: De Li M.D.Date of Visit:Aug 02, 2021 Onc Med Follow-up/Prog Note History of Present Illness: Ms. Nazanin Reynolds, is a 80-year-old female with a history of macular degeneration, congestive heart failure, coronary artery disease during her routine follow-up her lab work-up done in early 2019 showed elevated platelets count and white blood cells, patient was referred to [facility] in [place], [place] where she underwent. 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 Repeat CT scan of chest done on February 21, 2021 shows left lower lobe pulmonary nodule measuring 1.3 x 0.9 x 1.3 cm compared to 7 mm in March 2020 As per patient ,she was started on hydroxyurea, which she took twice a day for 6 weeks and after that in June 2020 she was started on dasatinib 50 mg p.o. daily, her baseline QTC was less than 450 ms, patient said she could not afford copayment so there was a delay in getting her medication, which she eventually got it and took it till October 04, 2020 when she ran out of her prescription and also moved to [place].. 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 As per oncology note from August 11, 2020, patient was tolerating treatment well with evidence of CHR. Repeat BCR/ABL 1 international scale was 7.84 compared to 3 on August 04, 2020.(Patient was noncompliant with dasatinib due to unavailability while moving to [place] from [place] and her medicine was not delivered to her by pharmacy on time) Repeat quantitative PCR for BCR ABL done on April 19, 2021 shows 0.009 compared to 7.84 in January 2021, probably due to patient's inability to acquire dasatinib while she was moving to [place] Repeat quantitative PCR for BCR ABL done on July 24, 2021 shows 0.004 compared to 0.009 on April 19, 2021 History of smoking but quit smoking in 1993.History of coronary artery disease status post [place] in 1993 requiring intubation which caused permanent huskiness of voice History of macular degeneration and glaucoma Came for follow-up, denies any specific complaints, no fever chills, no nausea or vomiting, no diarrhea or constipation, patient is complaining of not getting her mail-in dasatinib on time and usually the laps of 1 week every month. Otherwise tolerating Dasatinib well Medications: Dede-[place] 1 Tablet (of 750 mg) Tablet, effervescent Oral PRN, amLODIPine Besylate 1 Tablet (of 2.5 mg) Oral daily, B Complex 1 Tablet Oral daily, Bisoprolol Fumarate 1 Tablet (of 5 mg) Oral every am, Brimonidine Tartrate 1 Drop(s) (of 0.2 %) Solution Ophthalmic b.i.d., Calcium 1 Tablet (of 500 mg) Oral b.i.d., Calcium 1 Tablet (of 500 mg) Oral daily, Co Q10 1 Capsule (of 100 mg) Oral daily, Copper 1 Tablet (of 5 mg) Oral daily, Fish Oil 1 Capsule (of 1400 mg) Oral t.i.d., Furosemide 1 Tablet (of 40 mg) Oral daily, Latanoprost 1 Drop(s) (of 0.005 %) Solution Ophthalmic at bedtime, Losartan Potassium 1 Tablet (of 25 mg) Oral daily, Omeprazole (20 mg) Capsule Delayed Release Oral Take as Directed, Pravastatin Sodium 1 Tablet (of 40 mg) Oral daily, PreserVision AREDS 1 Tablet Oral b.i.d., SM Stool Softener 1 Capsule (of 50 mg) Oral daily, Sprycel 1 Tablet (of 50 mg) Oral daily, Tagamet HB 2 - 3 Tablet (of 200 mg) Oral daily, Vitamin C 1 Capsule (of 250 mg) Oral daily, Vitamin D (Cholecalciferol) 1 Tablet (of 1000 mg) Oral daily, Vitamin E 1 Capsule (of 200 Units) Oral daily, Zeaxanthin 1 Tablet (of 1 mg) daily, Zinc 1 Tablet (of 40 mg) Oral daily Allergies: Codeine and Related, Iodinated Contrast Dye, and Morphine Derivatives. Review of Systems: Review of Systems is not available for this patient. Vital Signs: Performed on Aug 02, 2021 13:39 Weight - 169.2 lbs (HIGH) BSA - 0.00 sq.m BMI - 0.00 Temperature - 96.6 F (LOW) Pulse - 62 /min Respiration - 18 /min BP - 150/53 mm(hg) (HIGH) O2 Sat - 96 % Pain - 0 Fatigue - 6 Performance Status: 0 - Fully active, able to carry on all predisease activities without restrictions. (ECOG) Physical Examination: ENMT - No mouth sores, no thrush, no jaundice, Respiratory - Lungs are clear to auscultation, Cardiovascular - Regular rate and rhythm of heart , Abdomen - Soft, bowel sounds present, Extremities - No visible edema. Lab/Imaging: Most recent lab results are not available for this patient. 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 daily in June 2020, baseline QTC less than 450 ms. Labs done on May 23, 2020 showed white blood count 14.3, hemoglobin 14.6 hematocrit 43.7 platelets 1265,000, neutrophils 69%, lymphocytes 14%, basophil 12% follow-up labs done on August 04, 2020???including PCR for BCR ABL showed 3%, which is optimal response for 3 months on dasatinib [address] scan of abdomen pelvis done in March 2020 showed 7 mm pulmonary nodule versus scar in the left lung base and no acute abnormality in the upper abdomen Repeat CT scan of chest done on February 21, 2021 showed left lower lobe pulmonary nodule mild 13 x 9 x 13 mm. Chronic emphysema. No lymphadenopathy. 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 required for acute [place] History of coronary artery disease/CHF Macular degenerative disease, Bilateral glaucoma Plan: Discussed with patient regarding her labs white blood count 10.8 hemoglobin 13.9 hematocrit 41.1 platelets 228,000 CMP within normal limits and quantitative PCR for BCR/ABL done on July 24, 2021 shows further improvement now 0.004 compared to 0.009 previously Clinically, patient doing well with no new signs symptoms history of disease progression her lab work-up is reasonable with mild leukocytosis but quantitative PCR for BCR ABL shows further improvement, she is tolerating dasatinib very well and will continue with same, will also request patient navigator to investigate and ensure on time dasatinib supply. Patient return to clinic in 3 months with CBC CMP and quantitative PCR for BCR/ABL Signed By: De Li M.D. <<Signature on File>>
== END 2021-08-02 05:31 | disposition home or self-care (01) ==
LOC: ONCMED 05:30
PROVIDERS: PCP Family Medicine; Visit Provider Internal Medicine Hematology & Oncology
DX: C92.10 Chronic myeloid leukemia, BCR/ABL-positive, not having achieved remission (principal); I25.10 Atherosclerotic heart disease of native coronary artery without angina pectoris; I25.2 Old myocardial infarction; Z79.899 Other long term (current) drug therapy
CPT/HCPCS: 99214

== ENCOUNTER 2021-09-07 11:09 | Outpatient (CLI) | payer MEDICARE, SELFPAY ==
--- NOTE | 2021-09-07 11:45 | CT_ITS ---
WS: [id number] CT CHEST WITHOUT INTRAVENOUS CONTRAST HISTORY: Pulmonary Nodule TECHNIQUE: Contiguous 5 mm axial imaging performed on the thorax. Coronal and sagittal reformats are submitted. All CT scans at [facility] use at least one of these dose optimization techniques: automated exposure control; mA and/or kV adjustment per patient size (includes targeted exams where dose is matched to clinical indication); or iterative reconstruction. CONTRAST: None DLP: 879.01 mGycm COMPARISON: 02/21/2021 Lungs and central airway: Chronic emphysema. Interstitial thickening in the periphery of all lobes. M ild increase in size of the lobulated noncalcified nodule at the LEFT lung base. Nodule measures 11 x 15 mm and extends over a length of 14 mm. No additional focal nodules. There are a few areas of grou ndglass attenuation scattered throughout the lungs. Pleura: Normal. No pleural effusion. Heart and pericardium: Moderately enlarged heart. No effusion. Moderate atherosclerotic plaque within the [place] coronary arteries. Mediastinum and alexy: No mediastinum or hilar adenopathy. Vessels: Moderate atherosclerotic plaque within the aorta. Pulmonary artery is mildly enlarged. Chest wall and lower neck: No soft tissue masses. Upper abdomen: Prior cholecystectomy. No adrenal mass. The visualized liver is normal. Osseous structures: No destructive process. CT/CT chest wo con [id number] IMPRESSION: 1. Mild increase in size of the lobulated noncalcified pulmonary nodule at the LEFT lung base now measuring 11 x 15 x 14 mm. Suspicious for neoplasm. 2. Moderate cardiomegaly and coronary artery atherosclerosis. 3. Chronic emphysema.
== END 2021-09-07 11:10 | disposition home or self-care (01) ==
PROVIDERS: PCP Family Medicine; Visit Provider Internal Medicine Critical Care Medicine
DX: R91.1 Solitary pulmonary nodule (principal); J43.9 Emphysema, unspecified; I51.7 Cardiomegaly
CPT/HCPCS: 71250

== ENCOUNTER 2021-11-16 12:55 | Outpatient (CLI) | payer MEDICARE, SELFPAY ==
[2021-11-16 13:39] LABS: Basophils # 0.1 10^3/uL (0.0-0.1); Basophils % 0.7 %; Eosinophils # 0.3 10^3/uL (0.0-0.8); Eosinophils % 2.9 %; Hematocrit 40.2 % (37.0-47.0); Hemoglobin 13.9 g/dL (11.5-15.3); Lymphocytes # 3.9 10^3/uL (0.8-4.8); Lymphocytes % 38.2 %; Mean Corpuscular HGB Conc 34.6 g/dL (30.0-36.0); Mean Corpuscular Hemoglobin 32.9 pg (28.0-34.0); Mean Platelet Volume 9.7 fL (7.4-10.4); Monocytes # 0.8 10^3/uL (0.2-0.9); Monocytes % 7.8 %; Neutrophils # 5.05 10^3/uL (1.8-7.7); Neutrophils % 50.1 %; Nucleated Red Blood Cells % 0 %; Platelet Count 248 10^3/cmm (130-400); Red Blood Count 4.23 10^6/uL (4.1-5.3); Red Cell Distribution Width 12.6 % (12.1-15.1); White Blood Count 10.1 10^3/uL (4.0-10.0)
--- NOTE | 2021-11-16 17:40 | ONC FU_ITS ---
Dr. Li follow up note Patient: Nazanin Reynolds Unit #: [id number]: 1940 Dicatated By: De Li M.D.Date of Visit:Nov 16, 2021 Onc Med Follow-up/Prog Note History of Present Illness: Ms. Nazanin Reynolds, is a 81 year-old female with a history of macular degeneration, congestive heart failure, coronary artery disease during her routine follow-up her lab work-up done in early 2019 showed elevated platelets count and white blood cells, patient was referred to [facility] in [place], [place] where she underwent. 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 Repeat CT scan of chest done on February 21, 2021 shows left lower lobe pulmonary nodule measuring 1.3 x 0.9 x 1.3 cm compared to 7 mm in March 2020 As per patient ,she was started on hydroxyurea, which she took twice a day for 6 weeks and after that in June 2020 she was started on dasatinib 50 mg p.o. daily, her baseline QTC was less than 450 ms, patient said she could not afford copayment so there was a delay in getting her medication, which she eventually got it and took it till October 04, 2020 when she ran out of her prescription and also moved to [place].. 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 As per oncology note from August 11, 2020, patient was tolerating treatment well with evidence of CHR. Repeat BCR/ABL 1 international scale was 7.84 compared to 3 on August 04, 2020.(Patient was noncompliant with dasatinib due to unavailability while moving to [place] from [place] and her medicine was not delivered to her by pharmacy on time) Repeat quantitative PCR for BCR ABL done on April 19, 2021 shows 0.009 compared to 7.84 in January 2021, probably due to patient's inability to acquire dasatinib while she was moving to [place] Repeat quantitative PCR for BCR ABL done on July 24, 2021 shows 0.004 compared to 0.009 on April 19, 2021 History of smoking but quit smoking in 1993.History of coronary artery disease status post [place] in 1993 requiring intubation which caused permanent huskiness of voice History of macular degeneration and glaucoma tolerating Dasatinib well Came for follow-up, denies any specific complaints, no fever chills, no nausea or vomiting, no diarrhea constipation, no abdominal fullness, no nosebleed or gum bleed, no melena or hematochezia, tolerating dasatinib well otherwise Medications: Dede-[place] 1 Tablet (of 750 mg) Tablet, effervescent Oral PRN, amLODIPine Besylate 1 Tablet (of 2.5 mg) Oral daily, B Complex 1 Tablet Oral daily, Bisoprolol Fumarate 1 Tablet (of 5 mg) Oral every am, Brimonidine Tartrate 1 Drop(s) (of 0.2 %) Solution Ophthalmic b.i.d., Calcium 1 Tablet (of 500 mg) Oral b.i.d., Calcium 1 Tablet (of 500 mg) Oral daily, Co Q10 1 Capsule (of 100 mg) Oral daily, Copper 1 Tablet (of 5 mg) Oral daily, Fish Oil 1 Capsule (of 1400 mg) Oral t.i.d., Furosemide 1 Tablet (of 40 mg) Oral daily, Latanoprost 1 Drop(s) (of 0.005 %) Solution Ophthalmic at bedtime, Losartan Potassium 1 Tablet (of 25 mg) Oral daily, Omeprazole (20 mg) Capsule Delayed Release Oral Take as Directed, Pravastatin Sodium 1 Tablet (of 40 mg) Oral daily, PreserVision AREDS 1 Tablet Oral b.i.d., SM Stool Softener 1 Capsule (of 50 mg) Oral daily, Sprycel 1 Tablet (of 50 mg) Oral daily, Tagamet HB 2 - 3 Tablet (of 200 mg) Oral daily, Vitamin C 1 Capsule (of 250 mg) Oral daily, Vitamin D (Cholecalciferol) 1 Tablet (of 1000 mg) Oral daily, Vitamin E 1 Capsule (of 200 Units) Oral daily, Zeaxanthin 1 Tablet (of 1 mg) daily, Zinc 1 Tablet (of 40 mg) Oral daily Allergies: Codeine and Related, Iodinated Contrast Dye, and Morphine Derivatives. Review of Systems: Review of Systems is not available for this patient. Vital Signs: Performed on Nov 16, 2021 15:56 Weight - 171.8 lbs (HIGH) BSA - 0.00 sq.m BMI - 0.00 Temperature - 96.8 F (LOW) Pulse - 64 /min Respiration - 18 /min BP - 152/64 mm(hg) (HIGH) O2 Sat - 94 % (LOW) Pain - 0 Fatigue - 7 Performance Status: 0 - Fully active, able to carry on all predisease activities without restrictions. (ECOG) Physical Examination: ENMT - No mouth sores, no thrush, no jaundice, Respiratory - Lungs are clear to auscultation, Cardiovascular - Regular rate and rhythm of heart, Abdomen - Soft, bowel sounds present, Extremities - No visible edema. Lab/Imaging: Most recent lab results are not available for this patient. 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 daily in June 2020, baseline QTC less than 450 ms. Labs done on May 23, 2020 showed white blood count 14.3, hemoglobin 14.6 hematocrit 43.7 platelets 1265,000, neutrophils 69%, lymphocytes 14%, basophil 12% follow-up labs done on August 04, 2020???including PCR for BCR ABL showed 3%, which is optimal response for 3 months on dasatinib [address] scan of abdomen pelvis done in March 2020 showed 7 mm pulmonary nodule versus scar in the left lung base and no acute abnormality in the upper abdomen Repeat CT scan of chest done on February 21, 2021 showed left lower lobe pulmonary nodule mild 13 x 9 x 13 mm. Chronic emphysema. No lymphadenopathy. 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 daily, well her follow-up quantitative PCR for BCR/ABL is pending, will reviewed in the meantime we will continue with same and she will return to clinic in 3 months, patient was advised to come week early for CBC CMP and quantitative PCR for BCR/ABL. Signed By: De Li M.D. <<Signature on File>>
[2021-11-20 15:22] LABS: P210 BCR ALB1 NOT DETECTED; Prior Results NG; Source blood
== END 2021-11-16 12:56 | disposition home or self-care (01) ==
LOC: ONCMED 12:59
PROVIDERS: PCP Family Medicine; Visit Provider Internal Medicine Hematology & Oncology
DX: C92.10 Chronic myeloid leukemia, BCR/ABL-positive, not having achieved remission (principal); I25.10 Atherosclerotic heart disease of native coronary artery without angina pectoris; I50.9 Heart failure, unspecified; R49.0 Dysphonia; I25.2 Old myocardial infarction; Z87.891 Personal history of nicotine dependence
CPT/HCPCS: 36415; 81206; 85025; 99214